=== PATIENT | male | born 2000 | race Hispanic/Latino ===

== ENCOUNTER 2023-05-31 15:26 | Emergency (ER) | payer OTHER, BC ==
[~2023-05-31] VITALS: Ht 198.1 cm; Wt 176.9 kg
[2023-05-31 17:56] LABS: BASOPHILS 0.9 % (0-2); EOSINOPHILS 1.2 % (0-6); HEMATOCRIT 43.9 % (35.0-50.0); LYMPHOCYTES 18.5 % (24-44); MCH 26.7 (27-36); MCHC 31.9 g/dl (30-36); MCV 83.7 fl (81-99); NEUTROPHILS 72.4 % (39-80); PLATELET COUNT 379 K/uL (140-440); RBC 5.24 M/ul (4.3-5.7); RDW 14.1 (10.5-15.0)
[2023-05-31 18:10] LABS: ANION GAP 15.9 (7-21); BILIRUBIN, TOTAL 0.3 ng/dL (0.2-1.0); BUN/CREATININE RATIO 14.77 (6.0-28.6); CALCIUM 9.2 mg/dL (8.5-10.1); CREATININE, SERUM 0.88 mg/dL (0.70-1.30); POTASSIUM 3.9 mmol/L (3.5-5.1)
[2023-05-31 19:50] VITALS: BP 135/76
== END 2023-05-31 19:50 | disposition home or self-care (01) ==
LOC: ED 15:26
PROVIDERS: Emergency Medicine
DX: S20.212A Contusion of left front wall of thorax, initial encounter (principal); S80.12XA Contusion of left lower leg, initial encounter; V68.5XXA Driver of heavy transport vehicle injured in noncollision transport accident in traffic accident, initial encounter; Z88.2 Allergy status to sulfonamides
CPT/HCPCS: 36415; 71045; 73552; 73590; 80053; 82553; 85025; A9270; J1170; J7030